=== PATIENT | male | born 1980 | race African-American/Black ===

== ENCOUNTER 2019-04-07 07:29 | Emergency (ER) | payer BC ==
[~2019-04-07] VITALS: Ht 185.4 cm; Wt 95.3 kg
[2019-04-07 08:09] VITALS: BP 156/76
== END 2019-04-07 08:11 | disposition home or self-care (01) ==
LOC: M.ERS 07:29
DX: S01.01XA Laceration without foreign body of scalp, initial encounter (principal); W22.8XXA Striking against or struck by other objects, initial encounter; Y93.89 Activity, other specified; Y92.89 Other specified places as the place of occurrence of the external cause; Y99.8 Other external cause status